=== PATIENT | female | born 2005 | race Caucasian/White ===

== ENCOUNTER 2023-06-23 16:30 | Outpatient (RCR) | payer OTHER, SELFPAY ==
--- NOTE | 2023-06-02 15:52 | HP.PTEVAL ---
Patient's Visit Information Visit Information Visit Information: ROC CLINE is a 17 year old F referred to Physical Therapy by MAGALI MALDONADO with a diagnosis of Vertigo. Date of Evaluation: 06/02/23 Physical Therapist: Jose Mustafa, SOLANGET, OCS, CSCS Visit Plan Frequency: 1-2x /Week Duration: 4-6 Weeks Plan: 1-2x/week for 4-6 weeks as needed for instruction in and progression of adaptation exercises and possibly habituation for her dizzyness. Given VOR seated 60 sec 6x/day H today(8/10 after 30 seconds for 15 seconds) Progress to vertical, VOR x 2 and check MSQ next session. Subjective Subjective: I got migraines and dizzyness since october, not too bad at school. One day in March head started spinning and fell over. Went to ER. got migraines the next day with light sensitivity and migraines. Given migraine meds which helped diminish the duration. Dizzyness is described as lightheadedness , not spinning. Vertigo came back in April with no warning after breakfast for short duration. No obvious reasoning. May and April had bad days here and there now. Lighting might bother eyes, Fireworks made it happen at April 12 and [employer] fireworks. This past week seems worse after moving back to school at [employer] for her sophomore year. More migraines this week and dizzy lightheaded feeling is intermittent and worse. 5/10 and gone once out of environment. Hanging clothes moving in and bending and turning made her worse. Bagging items turning a little will casue it for short duration. Sleep is OK. Avoids dishes and household work due to this(laundry etc) . Doing some eye therapy at home that she has had since second grade. They can make her dizzy. Basic ADLs are OK. 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 Laid in bed whole month bun. HUDSON are main pain 8/10 without reason. Lies down or has rescue meds. No head trauma. Objective Objective: Walks I and normal without gait deviations, Transfers I bed and chair. Good balance and steps easily without rail. Cervical AROm is full and painfree. reflex 2/3 bi and tri sensation UE WNL to gross light touch strength UE symmetrical adn 4+ without myotomal problems or pain. - B hallpike selma - roll test. Oculomotor: no nystagmus with gaze or head shake - skew eye deviation - ocular tilt pursuit and saccade appear normal and are asymptomatic VOR is symptomatic 8/10 dizzy for 15 seconds after 30 seconds. + R head thrust DVA 3 lines worse than SVA Balance/Special Test Scores Functional Gait Assessment Score: 30 % Disability: 0 Dizziness Score: 50 Goals Goal 1:: Pt feel dizzyness 90% better adn 1/10 at worst. Goal Time Frame: 4-6 Weeks Goal 2:: fold clothes and computer work without increased symptoms. Goal Time Frame: 4-6 Weeks Goal 3:: DHI 2 or better. Goal Time Frame: 4-6 Weeks Goal 4:: I appropr HEp to imit future problems Goal Time Frame: 4-6 Weeks Rehabilitation Potential Physical Therapy Diagnosis: likely unilateral vestibular hyponfunciton vs migrainous vest symptoms Rehabilitation Potential: Good Anticipated Interventions Patient/Client Instruction: Educate patient on: Condition and Plan of Care For the Purpose of:: To increase tolerance to activity/condition/position and To improve ability of physical actions for home/community/work/leisure Comment: adaptation./habituation For the Purpose of:: To increase tolerance to activity/condition/position and To improve ability of physical actions for home/community/work/leisure Text: Thank you for the opportunity to evaluate your patient. For Medicare and Medicare HMO plans, please review the plan of care and approve it. It will need to be FAXED BACK to us at [phone] for Medicare purposes. For Medicare only, by signing this I certify the plan of care. Please let me know if there are questions or concerns regarding this plan of care. Physician Signature: Date:
--- NOTE | 2023-06-23 16:47 | HP.PTDCSUM ---
Discharge Summary D/C summary: It has been my pleasure to treat ROC CLINE referred by MAGALI MALDONADO, with the diagnosis of Vertigo for a total of 4 visit(s). Discharge Date: Please see the following information for a summary of their discharge status. Subjective Subjective: Had bad migraines earlier in week but dizzyness has not been a problem. Not sure why she had the migraines...they were worse than her normal migraines. Doing exercises regularly, head turns still the worst but improving, bending is good. Did a somersault and felt precursor to dizzyness for a minute or two. To zoom neuro at end of month. Overall Improvement % Improvement: 100 Objective Objective/Function: 2/10 dizzyness for 2 seconds with head turns, none with bend and recover diagonally today, none with vertical nods, none with VOR x 2 walking. Overall significantly better and ready to be done, Goals Goal 1:: Pt feel dizzyness 90% better adn 1/10 at worst. Goal Progress: Goal Met Goal 2:: fold clothes and computer work without increased symptoms. Goal Progress: Goal Met Goal 3:: DHI 2 or better. Goal Progress: Progressing Goal 4:: I appropr HEp to imit future problems Goal Progress: Goal Met Plan Plan: d/c D/C Information d/c sentence: If there are questions or concerns regarding this patient's physical therapy, please feel free to call me at [phone]. Thank you for the referral of this patient. Sincerely, Jose Mustafa, DPT, OCS, CSCS Balance/Gait/Functional tests Balance/Special Test Scores Functional Gait Assessment Score: 30 % Disability: 0 Dizziness Score: 18 Improvement % Improvement: 100
== END 2023-06-23 19:00 | disposition home or self-care (01) ==
LOC: PT 16:30
DX: G43.019 Migraine without aura, intractable, without status migrainosus (principal)
CPT/HCPCS: 97162; 97164; 97530